=== PATIENT | female | born 1960 | race Caucasian/White ===

== ENCOUNTER → 2022-03-20 | Outpatient (CLI) | payer OTHER ==
[~2022-03-20] MED LIST: ASPI325; ENOX100I SQ; HYDACE5 PO; LORA2 PO; MECL25 PO; WARF5 PO
== END | disposition home or self-care (01) ==
LOC: LAB 10:16 → LAB SHORT 10:16
DX: J02.9 Acute pharyngitis, unspecified (principal)
CPT/HCPCS: 87081

== ENCOUNTER 2025-02-13 01:46 | Day surgery (SDC) | payer OTHER ==
[~2025-02-13 01:46] MED LIST changes: +ESTRADIOL1 EAC2 TOP; +PROG100 PO
[2025-02-13] MEDS ORDERED: Cosyntropin 0.25 MG / ML 1ML Vial IV SCH (07:00)
[2025-02-13 08:36] VITALS: BP 108/69
[2025-02-13] MEDS ORDERED: LOTREXONE4.5 MG PO (08:49)
[2025-02-13] MEDS ORDERED: LATA.005SO BOTHEYES (08:49)
[2025-02-13] MEDS ORDERED: MOUNJARO2.5 MG/0.5 SC (08:50)
== END 2025-02-13 09:57 | disposition home or self-care (01) ==
LOC: ATC 01:46
DX: I95.1 Orthostatic hypotension (principal); E78.5 Hyperlipidemia, unspecified
CPT/HCPCS: 36591; 80400; 82533; 96374; J0834